=== PATIENT | male | born 1930 | race Caucasian/White ===

== ENCOUNTER 2019-01-02 15:30 | Inpatient (IN) ==
--- NOTE | 2019-01-02 16:12 | Diag Imaging Result Doc PS360 ---
EXAM: CHEST-PORTABLE HISTORY: dyspnea TECHNIQUE: Chest single view COMPARISON: 10/20/2018 FINDINGS: The lungs are well expanded. The heart is not enlarged. There are sternal wires and surgical clips. The vessels are not distended. Mild increased interstitial markings similar to the prior exam. No effusion identified. There is pleural thickening. IMPRESSION: Stable chest Electronically signed by Venu Fu 01/02/2019 4:09 PM
[2019-01-02 16:20] LABS: BASO# 0.04 X1000 (0.0-0.2); BASO% 0.4 % (0.0-0.8); EOS# 0.36 X1000 (0.0-0.7); EOS% 3.5 % (0.0-10.0); HEMATOCRIT 40.9 % (42.0-52.0); IMM GRAN# 0.07 X1000 (0.0-0.04); IMM GRAN% 0.7 % (0.0-0.5); LYMPH# 1.82 X1000 (1.2-3.4); LYMPH% 17.7 % (20.5-51.1); MCH 30.4 PG (27-31); MCHC 34.2 g/dL (33-37); MCV 88.7 FL (81-99); MONO# 0.59 X1000 (0.11-0.59); MONO% 5.7 % (1.7-9.3); MPV 9.4 FL (7.4-10.4); NEUT# 7.41 X1000 (1.4-6.5); PLT 248 X1000 (130-400); RBC 4.61 XMIL (4.7-6.1); RDW 14.4 % (11.5-14.5); WBC 10.29 X1000 (4.8-10.8)
[2019-01-02 16:32] LABS: PTT 30.4 Seconds (22.3-41.8)
[2019-01-02 16:33] LABS: ALB/GLOB RATIO 1.2; ALBUMIN 3.7 g/dL (3.5-5.0); CALCIUM 8.9 mg/dL (8.8-10.2); CREATININE 1.2 mg/dL (0.7-1.2); POTASSIUM 4.7 mmol/L (3.5-5.1); TOTAL BILIRUBIN 0.33 mg/dL (0.20-1.00); TOTAL PROTEIN 6.7 g/dL (6.3-8.3)
--- NOTE | 2019-01-02 17:12 | EKG Report ---
Test Performed on : 01/02/2019 3:41:36 PM Test Reason : ED. NO EKG ORDER FOR MUSE Blood Pressure : / mmHG Vent. Rate : 054 BPM Atrial Rate : 054 BPM P-R Int : 140 ms QRS Dur : 126 ms QT Int : 516 ms P-R-T Axes : -06 -15 031 degrees QTc Int : 489 ms Sinus bradycardia. Right bundle branch block Abnormal ECG When compared with ECG of 20-OCT-2018 20:53, Vent. rate has decreased BY [address] no longer depressed in Anterior leads Unconfirmed Result
[2019-01-02 17:59] LABS: URINE SOURCE CATH
[2019-01-02 18:05] LABS: BILIRUBIN URINE NEGATIVE (NEGATIVE); BLOOD URINE NEGATIVE (NEGATIVE); COLOR YELLOW; GLUCOSE URINE NEGATIVE (NEGATIVE); KETONE URINE NEGATIVE (NEGATIVE); LEUKOCYTES URINE NEGATIVE (NEGATIVE); NITRITE URINE NEGATIVE (NEGATIVE); PH URINE 5.5; PROTEIN URINE 200 mg/dL (NEGATIVE); SP GRAVITY URINE 1.024; TURBIDITY URINE CLEAR (CLEAR); UROBILINOGEN URINE NORMAL (NORMAL)
[2019-01-02 18:08] LABS: UR EPITHELIAL CELLS <10 /HPF (<10); URINE BACTERIA NEGATIVE /HPF; URINE RBC <10 /HPF (<10); URINE WBC <10 /HPF (<10)
--- NOTE | 2019-01-02 19:01 | PROVIDER DOCUMENTATION ---
This chart was entered by Rebecca Red Scribe, acting as scribe for Sergo Leos MD. HPI-Chest Pain - General Stated Complaint: CHEST PAIN/SOB Time Seen by Provider: 01/02/19 15:39 Source: patient Allergies/Adverse Reactions: Patient Allergies Allergy/AdvReac Type Severity Reaction Status Date / Time No Known Allergies Allergy Verified 09/16/17 09:55 Home Medications: Home Medication List Medication Instructions Recorded Confirmed Last Taken Type Aspirin 81 mg PO DAILY 05/09/12 10/20/18 09/15/17 History Donepezil HCl 10 mg PO DAILY 09/16/17 10/20/18 09/15/17 08:00 History Famotidine [Pepcid] 20 mg PO DAILY 09/16/17 10/20/18 09/16/17 05:00 History Fluticasone/Salmet 500/50 INH 1 puff INH BID 09/16/17 10/20/18 09/08/17 History [Advair 500/50 Diskus] Gabapentin 100 mg PO QHS 09/16/17 10/20/18 09/15/17 20:00 History Insulin Glargine [Lantus Insulin] 20 units SQ DAILY 09/16/17 10/20/18 09/16/17 05:00 History Levothyroxine [Synthroid] 100 microgm PO DAILY 09/16/17 10/20/18 09/16/17 05:00 History Metoprolol Tartrate 50 mg PO DAILY 09/16/17 10/20/18 09/15/17 08:00 History Ropinirole [Requip] 0.25 mg PO HS 09/16/17 10/20/18 09/15/17 20:00 History Simvastatin [Zocor] 20 mg PO QHS 09/16/17 10/20/18 09/15/17 20:00 History Iron Carbonyl/Ascorbic Acid 1 each PO DAILY tablet 09/19/17 10/20/18 Unknown Rx [Icar-C] Gabapentin 300 mg PO QHS 10/20/18 10/20/18 Unknown History LISINOpril [Prinivil] 5 mg PO DAILY 10/20/18 10/20/18 Unknown History Magnesium Hydroxide [Milk of 30 ml PO ORDERED 10/20/18 10/20/18 Unknown History Magnesia] Multivitamin,Therapeutic [Thera] 1 tab PO DAILY 10/20/18 10/20/18 Unknown History Ranitidine [Zantac] 150 mg PO 10/20/18 Unknown History Sertraline HCl 75 mg PO QHS 10/20/18 10/20/18 Unknown History Albuterol 2.5MG/Ipratrop 0.5MG 3 ml INH Q4-6H PRN PRN #30 neb 10/21/18 Unknown Rx [Duoneb (A & A)] Levofloxacin 500 mg PO DAILY #6 tab 10/21/18 Unknown Rx - History of Present Illness-CP Nature of Presenting Problem: Patient is a 88 year old male who presents to the ED via EMS after having chest pain and shortness of breath. Patient denies having symptoms currently. Patient's RN states EMS stated patient started having chest pain, diaphoresis, a heart rate in the 30's and became pale shortly after lunch today. EMS reports patient received 1 nitro and 325 mg of aspirin then chest pain resolved. EMS states patient went to bed and symptoms started again. Patient received 2 more nitro and 4 mg of zofran prior to arrival. Location: reports: central Chest Pain Radiation: reports: no radiation Quality of Pain: reports: aching Severity in ED: mild Onset/Duration: this afternoon Timing: gone now Associated Symptoms: reports: diaphoresis, shortness of breath Nitro Today/Relief: 0.4 mg x 3, complete relief Aspirin Treatment Today: 325 mg x 1 Similar Symptoms Previously?: No Recently Seen Here or By Another Healthcare Provider: Yes Review of Systems - Adult - REVIEW OF SYSTEMS - ADULT Constitutional: reports: no symptoms reported. denies: chills, fever, fatique Eyes: reports: no symptoms reported Ears, Nose, Mouth & Throat: reports: no symptoms reported Cardiovascular: reports: no symptoms reported. denies: chest pain, irregular heart rate, palpitations Respiratory: reports: no symptoms reported. denies: cough, shortness of breath, wheezing Gastrointestinal: reports: no symptoms reported Genitourinary: reports: no symptoms reported Musculoskeletal: reports: no symptoms reported Integumentary: reports: no symptoms reported Neurological: reports: no symptoms reported Psychiatric: reports: no symptoms reported Endocrine: reports: no symptoms reported Hematologic/Lymphatic: reports: no symptoms reported Allergic/Immunologic: reports: no symptoms reported All Other Systems: Reviewed and Negative Past History - Adult - PAST MEDICAL HISTORY-ADULT Review of Records: reports: Old Records Reviewed, Nursing Assessment Review, Medications Reviewed, Social history reviewed & non-contributory. Major Childhood Illnesses: reports: denies history Cardiovascular: reports: HTN Respiratory: reports: asthma, COPD Gastrointestinal: reports: GERD Obstetrical/Gynecological: reports: denies history Genitourinary: reports: kidney disease Musculoskeletal: reports: denies history Neurological: reports: CVA, dementia, TIA Psychiatric: reports: depression Endocrine/Immune: reports: Diabetes, thyroid disorder Other Conditions: reports: denies history - PRIOR SURGERIES/PROCEDURES Surgical/Procedure History: reports: reviewed, not pertinent - IMMUNIZATION STATUS Childhood Immunizations: See Nurse Assessment Flu Vaccine: See Nurse Assessment - FAMILY HISTORY Family History: reviewed, not pertinent - SOCIAL HISTORY Smoking: cigarettes (former) Substance Use: denies Living Situation: care facility (SNF) Physical Exam-General - PHYSICAL EXAM-ADULT Initial Vital Signs Reviewed: Yes - CONSTITUTIONAL General Appearance: alert, no apparent distress. negative: lethargic, slow to respond - RESPIRATORY Respiratory: chest non-tender, lungs clear, respiratory distress (mild). nega tive: crackles, stridor, wheezing - CARDIOVASCULAR Cardiovascular: normal peripheral pulses, regular rate, rhythm. negative: tachycardia, systolic murmur - GASTROINTESTINAL (ABDOMEN) Abdominal Exam: normal bowel sounds, non tender, soft. negative: guarding, rebound - MUSCULOSKELETAL Extremity: non-tender, normal inspection. negative: deformity, erythema - SKIN Integumentary: normal color, normal turgor, warm/dry. negative: cyanosis, ecchymosis, erythema, jaundice - NEUROLOGIC Neurologic: grossly normal. negative: aphasia, facial droop - PSYCHIATRIC Psych/Mental Status: normal mood/affect, oriented x 3. negative: anxious Progress - PLAN OF CARE/RESULTS Progress/Plan/Lab Results: Vital Signs - 8 hr 01/02/19 16:11 Temperature 97.9 F Pulse Rate 55 L Respiratory Rate 18 Blood Pressure 127/61 O2 Sat by Pulse Oximetry 93 L Laboratory Results - last 24 hr 01/02/19 01/02/19 01/02/19 15:44 15:44 15:44 WBC 10.29 RBC 4.61 L Hgb 14.0 Hct 40.9 L MCV 88.7 MCH 30.4 MCHC 34.2 RDW Std Deviation 14.4 Plt Count 248 MPV 9.4 Immature Gran % (Auto) 0.7 H Neut % (Auto) 72.0 Lymph % (Auto) 17.7 L [place] % (Auto) 5.7 Eos % (Auto) 3.5 Baso % (Auto) 0.4 Immature Gran # (Auto) 0.07 H Neut # (Auto) 7.41 H Lymph # (Auto) 1.82 [place] # (Auto) 0.59 Eos # (Auto) 0.36 Baso # (Auto) 0.04 PT INR PTT (Actin FS) Sodium 139 Potassium 4.7 Chloride 99 Carbon Dioxide 30 Anion Gap 10 BUN 27 H Creatinine 1.2 Estimated GFR/1.73 m2 57 BUN/Creatinine Ratio 23 Glucose 179 H Calculated Osmolality 287 Calcium 8.9 Total Bilirubin 0.33 AST 20 ALT 18 Alkaline Phosphatase 93 Troponin T Cop-R-Uwlhgqzcjjk Pept 667 H Total Protein 6.7 Albumin 3.7 Globulin 3.0 Albumin/Globulin Ratio 1.2 Urine Source Urine Color Urine Turbidity Urine pH Ur Specific [place] Urine Protein Ur Glucose (Stick) Ur Ketones (Stick) Urine Blood Urine Nitrite Urine Bilirubin Urobilinogen Dipstick Urine Leukocytes Urine WBC (Auto) Urine RBC (Auto) U Epithel Cells (Auto) Urine Bacteria (Auto) 01/02/19 01/02/19 01/02/19 15:44 15:44 17:18 WBC RBC Hgb Hct MCV MCH MCHC RDW Std Deviation Plt Count MPV Immature Gran % (Auto) Neut % (Auto) Lymph % (Auto) [place] % (Auto) Eos % (Auto) Baso % (Auto) Immature Gran # (Auto) Neut # (Auto) Lymph # (Auto) [place] # (Auto) Eos # (Auto) Baso # (Auto) PT 14.0 INR 1.00 PTT (Actin FS) 30.4 Sodium Potassium Chloride Carbon Dioxide Anion Gap BUN Creatinine Estimated GFR/1.73 m2 BUN/Creatinine Ratio Glucose Calculated Osmolality Calcium Total Bilirubin AST ALT Alkaline Phosphatase Troponin T < 0.010 Pzv-R-Knysajsrhfw Pept Total Protein Albumin Globulin Albumin/Globulin Ratio Urine Source CATH Urine Color YELLOW Urine Turbidity CLEAR Urine pH 5.5 Ur Specific [place] 1.024 Urine Protein 200 A Ur Glucose (Stick) NEGATIVE Ur Ketones (Stick) NEGATIVE Urine Blood NEGATIVE Urine Nitrite NEGATIVE Urine Bilirubin NEGATIVE Urobilinogen Dipstick NORMAL Urine Leukocytes NEGATIVE Urine WBC (Auto) <10 Urine RBC (Auto) <10 U Epithel Cells (Auto) <10 Urine Bacteria (Auto) NEGATIVE Orders Category Date Time Status Resuscitation Status Routine Care 01/02/19 16:42 Ordered CHEST-PORTABLE [RAD] Stat Exams 01/02/19 15:50 Completed CBC WITH ELECTRONIC DIFF [HEME] Stat Lab 01/02/19 15:44 Completed COMPREHENSIVE METABOLIC PANEL [CHEM] Stat Lab 01/02/19 15:44 Completed PRO B-NATRIURETIC PEPTIDE Stat Lab 01/02/19 15:44 Completed PROTIME WITH INR [COAG] Stat Lab 01/02/19 15:44 Completed PTT [COAG] Stat Lab 01/02/19 15:44 Completed TROPONIN T Stat Lab 01/02/19 15:44 Completed URINALYSIS W/POSS RFLX CULT [URINALYSIS] Stat Lab 01/02/19 17:18 Completed EKG [EKG] Stat Ther 01/02/19 15:41 Draft Transfer/Admit Order [TRANSFER] Routine Transfer 01/02/19 18:48 Ordered Result Diagrams: 01/02/19 15:44 01/02/19 15:44 - EKG 1 Time of EKG reading by physician:: 15:41 EKG Read and Signed by:: Sergo Leos EKG Interpretation (*Must complete 3 of following elements*): Abnormal Rate: 54 Rhythm: sinus bradycardia [place]: normal QRS: RBB DE Interval: normal Comments: abnormal ECG - XRAY 1 XRAY Study: Chest Impression: See EMR Report ( EXAM: CHEST-PORTABLE HISTORY: dyspnea TECHNIQUE: Chest single view COMPARISON: 10/20/2018 FINDINGS: The lungs are well expanded. The heart is not enlarged. There are sternal wires and surgical clips. The vessels are not distended. Mild increased interstitial markings sim ilar to the prior exam. No effusion identified. There is pleural thickening. IMPRESSION: Stable chest Electronically signed by Venu Fu 01/02/2019 4:09 PM 01/02/19 [id number] Interpreting Physician: Venu Fu MD Dictated Date/Time: 01/02/19 0959 cc: Sergo Leos MD;) - CONSULTS/PCP/HOSPITALIST Notification #1 *Consult/PCP/Hospitalist*: RENETTA Nicole for Hospitalist Time Discussed: 17:56 Reason/Comments: Dr. Leos consulted with Bonnie about patient Consult Disposition: Will see in ED, Admit Departure - Departure Date of Disposition Decision: 01/02/19 Time of Disposition Decision: 17:57 DIAGNOSIS: Chest pain, Bradycardia Disposition: ADMITTED INPATIENT 09 Certified Medical Emergency: Emergent Condition: Serious Referrals and Follow-Ups: None,PCP [Primary Care Provider] - - Critical Care Note This patient required my direct & personal management of CC.: No Attestation - Physician/ DION Attestation The physician spent face to face time with patient:: Yes Advanced Practice Provider documentation review:: Supervising physician onsite and consulted in the evaluation and care of this patient. The physician did have a face to face encounter with the patient. This chart was documented by the indicated scribe, (Rebecca Red Scribe) and acc urately reflects the services I performed and decisions made by me, Sergo Leos MD, as attested by the provider's signature.
--- NOTE | 2019-01-02 19:40 | HISTORY AND PHYSICAL ---
PRIMARY CARE PROVIDER: None. CHIEF COMPLAINT: Chest pain and syncope. HISTORY OF PRESENT ILLNESS: Mr. Red is an 88-year-old male who carries a past medical history of dementia, type 2 diabetes, coronary artery disease, hypertension, COPD, who resides at [facility]. He presented to the ED after he had a syncopal episode, and when he came to, he started having chest pain that was in the center of his chest, that radiated over to his left shoulder ad down into his biceps. He had associated diaphoresis, and dizziness. This all occurred after lunchtime. He was relieved with nitroglycerin. When EMS arrived on the scene, his heart rate was in the 30s. While assessing him in the ED, his heart rate would drop down into the 40s and he would become dizzy. He was placed on supplemental O2, and we are admitting for chest pain and syncopal episode. As of note, patient is a Do Not Resuscitate level 1 from the alf. We will admit him to [facility] overnight for any more possible syncopal episodes and to watch his heart rhythm closely. PAST MEDICAL HISTORY: 1. Vascular dementia. 2. Coronary artery disease. 3. Type 2 diabetes. 4. Essential hypertension. 5. COPD. 6. Gastroesophageal reflux disease. 7. Benign prostatic hypertrophy. 8. Hyperlipidemia. 9. Neuropathy. 10. CAD. PAST SURGICAL HISTORY: 1. CABG 10 years ago in [place]. 2. Colonoscopy. 3. Polypectomy. SOCIAL HISTORY: He resides at [facility]. No tobacco, alcohol, or illicit drug use. 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 I believe this was in [place]. ALLERGIES: No known drug allergies. HOME MEDICATIONS: Have not been verified. REVIEW OF SYSTEMS: Completed and negative except for those mentioned in HPI. PHYSICAL EXAMINATION: VITAL SIGNS: Temperature is 97.9 degrees, heart rate 55, respirations 18, blood pressure 127/61, O2 is 93% on room air. He is 97% after nasal cannula. GENERAL: Mr. Red is a frail-appearing, 88-year-old male who is sitting up in the hospital bed in no acute distress. HEENT: Atraumatic, normocephalic. PERRL. NECK: Supple. Trachea midline. I did not appreciate any JVD. CV: S1, S2 appreciated. PULMONARY: Bilateral breath sounds decreased in the bases bilaterally. GASTROINTESTINAL: Soft, nontender, nondistended. Positive bowel sounds 4 quadrants. EXTREMITIES: Trace edema. NEUROLOGIC: Patient is alert and oriented x4. He follows commands. He moves all extremities. He does appear to have some footdrop in his bilateral lower extremities. He gets around in a wheelchair at the alf. DIAGNOSTIC DATA: EKG shows sinus bradycardia with a right bundle branch block, and he had a right bundle branch back in October. That was a new finding from his last one in 2018. Chest x-ray is stable chest. LABORATORY DATA: White count 10, hemoglobin and hematocrit 14 and 40, platelet count of 248,000. Sodium 139, potassium 4.7, BUN 27, creatinine 1.2, blood glucose is 179. Troponin less than 0.010. ProBNP was 667. ASSESSMENT AND PLAN: 1. Symptomatic bradycardia with a syncopal episode. We will admit him to [facility] overnight and watch his rhythm closely. We will check an echocardiogram, carotid Dopplers, and hold any medications that could lower his heart rate. 2. Chest pain. We will rule him out for myocardial infarction. First set of cardiac enzymes was negative. We will continue with p.r.n. nitroglycerin. Consult Cardiology. As of note, patient is a Do Not Resuscitate level 1. 3. Chronic obstructive pulmonary disease. No exacerbation. 4. Type [address] him on sliding scale insulin and pattern blood sugars. 5. Essential hypertension, stable. 6. Hyperlipidemia. 7. Vascular dementia. 8. Further recommendations to follow physician evaluation, laboratory and diagnostic data. Patient seen and examined by me face to face, all the laboratory, vitals signs and images were reviewed, patient has multiple comorbidities including dementia, type 2 diabetes, coronary artery disease, hypertension, COPD, who resides at [facility]. He presented to the ED after he had a syncopal episode and chest pain, he was found to be bradycardic, we will hold any medication that can cause bradycardia, will be transfer to [facility], at the moment of my exam he was felling better, Cardiology will be consulted, I agree with the rest of the EYE SURGEON's assessment and plan, Thomas Reyes MD Dictated by RENETTA Schafer for Thomas Steele MD cc: Thomas Steele MD [facility]
[2019-01-02] MEDS ORDERED: TYLENOL PO PRN (20:08)
[2019-01-02] MEDS ORDERED: NITROGLYCERIN SL PRN (20:08)
[2019-01-02] MEDS ORDERED: ZOFRAN IV PRN (20:08)
[2019-01-02] MEDS: HUMALOG SUBQ SCH (21:00)
[2019-01-03] MEDS: HUMALOG SUBQ SCH ×4 (06:20→22:16)
[2019-01-03 06:22] LABS: BASO# 0.04 X1000 (0.0-0.2); BASO% 0.5 % (0.0-0.8); EOS# 0.42 X1000 (0.0-0.7); HEMATOCRIT 38.3 % (42.0-52.0); HEMOGLOBIN 13.2 g/dL (14.0-18.0); IMM GRAN# 0.07 X1000 (0.0-0.04); IMM GRAN% 0.8 % (0.0-0.5); LYMPH# 2.42 X1000 (1.2-3.4); LYMPH% 28.9 % (20.5-51.1); MCH 30.8 PG (27-31); MCHC 34.5 g/dL (33-37); MCV 89.3 FL (81-99); MONO% 7.2 % (1.7-9.3); MPV 9.5 FL (7.4-10.4); NEUT# 4.82 X1000 (1.4-6.5); NEUT% 57.6 % (42.2-75.2); PLT 220 X1000 (130-400); RBC 4.29 XMIL (4.7-6.1); RDW 14.4 % (11.5-14.5); WBC 8.37 X1000 (4.8-10.8)
[2019-01-03 06:48] LABS: AGAP 10; ALB/GLOB RATIO 1.2; ALBUMIN 3.6 g/dL (3.5-5.0); ALKALINE PHOSPHATASE 83 U/L (32-122); BUN 24 mg/dL (8-22); CALCIUM 9.2 mg/dL (8.8-10.2); CHLORIDE 102 mmol/L (98-107); CHOLESTEROL 101 mg/dL (0-200); COSMO 284; CREATININE 1.2 mg/dL (0.7-1.2); ESTIMATED GFR 57; GLUCOSE 82 mg/dL (70-104); GOT 23 U/L (10-34); GPT 17 U/L (10-44); HDL 32 mg/dL (35-55); LDL 40 mg/dL; POTASSIUM 4.6 mmol/L (3.5-5.1); SODIUM 141 mmol/L (136-145); TCO2 29 mmol/L (25-35); TOTAL BILIRUBIN 0.32 mg/dL (0.20-1.00); TOTAL PROTEIN 6.5 g/dL (6.3-8.3); TRIGLYCERIDES 145 mg/dL (39-160); VLDL 29 mg/dL
[2019-01-03 06:49] LABS: FREE T4 1.38 ng/dL (0.93-1.70); TSH 2.76 uIUmL (0.27-4.20)
[2019-01-03] MEDS: PRILOSEC PO SCH (07:22)
--- NOTE | 2019-01-03 07:26 | EKG Report ---
Test Performed on : 01/03/2019 06:39:27 AM Test Reason : bradycardia Blood Pressure : / mmHG Vent. Rate : 054 BPM Atrial Rate : 054 BPM P-R Int : 116 ms QRS Dur : 128 ms QT Int : 508 ms P-R-T Axes : 020 025 070 degrees QTc Int : 481 ms Sinus bradycardia. Right bundle branch block Abnormal ECG When compared with ECG of 02-JAN-2019 15:41, (Unconfirmed) No significant change was found Confirmed by Denise FRANKLIN, Beny Arias ([id number]) on 01/03/2019 5:09:37 PM
--- NOTE | 2019-01-03 07:50 | Diag Imaging Result Doc PS360 ---
EXAM: CHEST-PORTABLE INDICATION: Chest Pain TECHNIQUE: One view COMPARISON: 01/02/2019 FINDINGS: Increased interstitial markings bilaterally are unchanged. No new consolidation is identified. Cardiac silhouette is stable. IMPRESSION: Stable chest. Electronically signed by Charlie Espana 01/03/2019 7:47 AM
--- NOTE | 2019-01-03 08:02 | PROGRESS NOTE ---
DATE: 01/03/2019 SUBJECTIVE: This patient is resting comfortably in bed. His heart rate has been mostly in the 50s and high 40s. He seems to be resting comfortably. He is DNR level 1. Cardiology has been consulted. OBJECTIVE: Vital Signs: Temperature 98.1 degrees, pulse 51, respiratory rate 18, blood pressure 151/61, oxygen saturation 99 on 2 L of nasal cannula. HEENT: Head normocephalic, no trauma. PERRLA. Neck: Supple. No JVD. No masses. Central trachea. Chest: Clear to auscultation. No wheezing. Some crepitus at the bases. Cardiovascular: RRR. Bradycardic. Abdomen: Soft, nontender, nondistended. No hepatosplenomegaly. Extremities: Trace edema. No clubbing, no cyanosis. Neurological examination: This patient is alert, he is oriented. He is following commands. He moves all 4 extremities, and it looks like he moves around in a wheelchair at the senior care. LABORATORY: WBC 8.3, hemoglobin 13.2, hematocrit 38.3, platelets 220. Sodium 141, potassium 4.6, chloride 102, bicarbonate 29. BUN 24, creatinine 1.2, glucose 82, calcium 9.2. Magnesium yesterday 2. Troponins negative x3. TSH 2.76. ASSESSMENT AND PLAN: 1. Symptomatic bradycardia with syncopal episode. The patient seems to be stable. He is sleepy, but arousable and talking. His heart rate has been mostly in the 50s. We will check his home medications. It looks like he has been on beta blockers, which has been stopped. Will continue with the same management for now. 2. Chest pain with negative troponins. He is not complaining of chest pain at this moment. 3. Chronic obstructive pulmonary disease not in exacerbation. 4. Type 2 diabetes. Continue with same management. 5. Hypothyroidism. Continue with levothyroxine. 6. Essential hypertension, stable. 7. Hyperlipidemia. We will continue with statins. 8. Vascular dementia. We will put this patient back on his medications. cc: Thomas Steele MD
[2019-01-03] MEDS: ICAR-C PO SCH (09:56)
[2019-01-03] MEDS: SYNTHROID PO SCH (09:57)
[2019-01-03] MEDS: ASPIRIN PO SCH (09:57)
[2019-01-03] MEDS: THERA M PLUS PO SCH (09:57)
[2019-01-03] MEDS: ARICEPT PO SCH (09:57)
[2019-01-03] MEDS: ZANTAC PO SCH (09:58)
--- NOTE | 2019-01-03 12:24 | CONSULTATION ---
DATE OF CONSULTATION: 01/03/2019 IMPRESSION: 1. Apparent syncopal spell while emptying bladder at detention. Bradycardia reported. 2. Significant dementia. 3. Nonambulatory. 4. Atherosclerotic coronary disease with previous coronary artery bypass grafting. Patient continues without angina. 5. Type 2 diabetes mellitus. 6. Hypertension. 7. Hyperlipidemia. RECOMMENDATIONS: 1. Taper off metoprolol as you are doing. 2. Pacemaker does not appear to be beneficial for this patient. 3. Conservative cardiovascular management overall. It is reasonable for patient to transfer back to [facility] facility in the next 24 hours. HISTORY: This 88-year-old, white male with a past history of dementia, previous coronary artery bypass surgery, type 2 diabetes mellitus, hypertension, prostate hypertrophy, hyperlipidemia, and COPD was transferred from the detention after a syncopal episode. He cannot remember much of what happened. It is reported that he was emptying his bladder in a bedside commode and was found passed out. Bradycardia was noted. He was transferred to the hospital for further evaluation. He was noted to have sinus bradycardia around 50. He has been on metoprolol and this has been held. He cannot recall any chest pain or palpitations. He is not ambulatory due to bilateral lower extremity weakness. He has a living will and is a "Do Not Resuscitate". PAST MEDICAL HISTORY: 1. Atherosclerotic coronary disease with history of previous coronary artery bypass grafting. 2. Dementia. 3. Nonambulatory. 4. Type 2 diabetes mellitus. 5. Hypertension. 6. Chronic obstructive pulmonary disease. 7. Gastroesophageal reflux disease. 8. Prostate hypertrophy. 9. Hyperlipidemia. 10. Peripheral neuropathy. 11. History of transient ischemic attacks and cerebrovascular disease. PAST SURGICAL HISTORY: Includes coronary artery bypass surgery and polypectomy via colonoscopy. ALLERGIES: He has no known drug allergies. MEDICATIONS PRIOR TO ADMISSION: As listed. SOCIAL HISTORY: He is and resides at a [facility] facility. He does not smoke or use alcohol. FAMILY HISTORY: Negative for premature coronary artery disease. REVIEW OF SYSTEMS: Pulmonary: Negative. Gastrointestinal: Negative. Constitutional: Negative beyond history of present illness. Remainder of review of systems negative/noncontributory beyond history of present illness with 14 total systems reviewed. PHYSICAL EXAMINATION: General: This is an overweight, elderly, white male in no distress. Vital Signs: Blood pressure 173/77, heart rate 55, with ECG monitor showing sinus bradycardia, weight 177 pounds. HEENT Examination: Extraocular muscles appear intact. Mucous membranes moist. Neck: Supple without jugular venous distention. There are no carotid bruits. Chest: Clear to auscultation. Cardiac Examination: Reveals a regular bradycardia without appreciable murmur, rub, or gallop. Abdomen: Soft. Bowel sounds are normal. Extremities: Without edema. Neurologic: Examination reveals him to be awake and responsive. His memory is poor and he is not oriented to time. Speech is fluent. He moves all 4 extremities equally well. PERTINENT DATA: Twelve-lead EKG demonstrates sinus bradycardia. LABORATORY DATA: Includes a sodium of 141, potassium 4.6, chloride 102. Carbon dioxide 29, BUN 24, creatinine 1.2, glucose 82, magnesium 2.0. Troponin T less than 0.01, Followup troponin T 0.018. TSH 2.76, free T4 of 1.38. White blood cell count 8.37, hematocrit 38.3, hemoglobin 13.2, platelet count 220,000. cc: Peterson Reynolds MD
[2019-01-03] MEDS ORDERED: APRESOLINE IV PRN (17:39)
[2019-01-03 17:43] LABS: URINE SOURCE CATH
[2019-01-03 17:47] LABS: UR EPITHELIAL CELLS >10 /HPF (<10); URINE BACTERIA NEGATIVE /HPF; URINE RBC TNTC /HPF (<10)
[2019-01-03 18:07] LABS: BILIRUBIN URINE NEGATIVE (NEGATIVE); BLOOD URINE LARGE (NEGATIVE); COLOR ORANGE; GLUCOSE URINE NEGATIVE (NEGATIVE); KETONE URINE NEGATIVE (NEGATIVE); LEUKOCYTES URINE NEGATIVE (NEGATIVE); NITRITE URINE NEGATIVE (NEGATIVE); PROTEIN URINE 100 mg/dL (NEGATIVE); SP GRAVITY URINE 1.017; TURBIDITY URINE TURBID (CLEAR); UROBILINOGEN URINE NORMAL (NORMAL)
--- NOTE | 2019-01-03 18:24 | ECHO REPORT ---
ORDER DATE: 01/02/2019 INDICATION: An 88-year-old male with chest pain, bradycardia, and syncope. M-MODE MEASUREMENTS: Left ventricle end diastole: 4.6. Left ventricle end systole: 2.3. Posterior wall: 1.3. Interventricular septum: 1.3. Left atrium: 3.8. Aortic diameter: 3.4. SUMMARY OF 2-DIMENSIONAL IMAGIN. Left ventricular function is normal. Ejection fraction is probably in the order of 65%. There is no wall motion abnormality. Mild degree of concentric LVH is noted. 2. There is sclerosis of the aortic valve without stenosis. Maximum gradient across the valve is less than 10 mmHg. 3. Pulmonic valve looks grossly normal. Color flow mapping unremarkable. 4. The mitral annulus shows mild calcification. 5. Pulsed wave Doppler of mitral inflow shows "normal" E/A ratio. 6. Tissue Doppler of septal and lateral mitral annulus averages 5 cm. 7. There is impaired left ventricular relaxation. There is mild degree of regurgitation. 8. Pulsed wave Doppler of pulmonary venous flow is normal. 9. The tricuspid valve is unremarkable. 10.Pulmonary pressure could not be calculated in this case. 11.The jet of tricuspid regurgitation is minimal. 12.Pulmonic valve is unremarkable. 13.Optison was injected at the end of the test to optimize visualization of the endocardium. 14.There is no pericardial effusion, mass, and no thrombus. 15.The right-sided chambers appear to be unremarkable. 16.Left atrium is probably normal. Clinical correlation is recommended. cc: Alexander No MD
[2019-01-03] MEDS: ADVAIR 500/50 DISKUS INH SCH (19:30)
[2019-01-03] MEDS ORDERED: REQUIP PO SCH (21:00)
[2019-01-03] MEDS ORDERED: NEURONTIN PO SCH (21:00)
[2019-01-03] MEDS ORDERED: ZOCOR PO SCH (21:00)
[2019-01-03] MEDS ORDERED: ZOLOFT PO SCH (21:00)
[2019-01-03] MEDS: APRESOLINE PO SCH (22:19)
[2019-01-04] MEDS: PRILOSEC PO SCH ×2 (05:16→06:21)
[2019-01-04] MEDS: APRESOLINE PO SCH ×2 (05:16→13:09)
[2019-01-04 06:28] LABS: BASO# 0.01 X1000 (0.0-0.2); BASO% 0.1 % (0.0-0.8); EOS# 0.02 X1000 (0.0-0.7); EOS% 0.1 % (0.0-10.0); HEMATOCRIT 39.5 % (42.0-52.0); HEMOGLOBIN 13.4 g/dL (14.0-18.0); IMM GRAN# 0.06 X1000 (0.0-0.04); IMM GRAN% 0.4 % (0.0-0.5); LYMPH# 0.96 X1000 (1.2-3.4); LYMPH% 7.2 % (20.5-51.1); MCH 30.3 PG (27-31); MCHC 33.9 g/dL (33-37); MCV 89.4 FL (81-99); MONO# 0.54 X1000 (0.11-0.59); NEUT# 11.81 X1000 (1.4-6.5); NEUT% 88.2 % (42.2-75.2); PLT 219 X1000 (130-400); RBC 4.42 XMIL (4.7-6.1); RDW 14.3 % (11.5-14.5)
[2019-01-04 06:43] LABS: CALCIUM 9.2 mg/dL (8.8-10.2); CREATININE 1.4 mg/dL (0.7-1.2); MAGNESIUM 1.8 mg/dL (1.5-2.7); PHOSPHORUS 3.9 mg/dL (2.7-4.5); POTASSIUM 4.6 mmol/L (3.5-5.1)
[2019-01-04] MEDS: HUMALOG SUBQ SCH ×2 (06:55→11:36)
[2019-01-04 07:48] LABS: BANDS 1 % (0-1); LYMPHS 6 % (21-51); MONO 2 % (1-9); SEGS 91 % (42-75)
[2019-01-04] MEDS: ADVAIR 500/50 DISKUS INH SCH (08:17)
[2019-01-04] MEDS ORDERED: MILK OF MAGNESIA PO SCH (09:00)
[2019-01-04] MEDS: ZANTAC PO SCH (09:47)
[2019-01-04] MEDS: ICAR-C PO SCH (09:47)
[2019-01-04] MEDS: THERA M PLUS PO SCH (09:47)
[2019-01-04] MEDS: ASPIRIN PO SCH (09:47)
[2019-01-04] MEDS: ARICEPT PO SCH (09:47)
[2019-01-04] MEDS: SYNTHROID PO SCH (09:47)
--- NOTE | 2019-01-04 10:36 | DISCHARGE SUMMARY ---
ADMISSION DATE: 01/02/2019 DISCHARGE DATE: 01/04/2019 DISCHARGE DIAGNOSES: 1. Symptomatic bradycardia with syncopal episode, resolved. 2. Chest pain with negative troponins. 3. Chronic obstructive pulmonary disease, not in exacerbation. 4. Type 2 diabetes. 5. Hypothyroidism. 6. Hypertension. 7. Hyperlipidemia. 8. Vascular dementia. PROCEDURES PERFORMED: 1. Echocardiogram dated 01/02/2019. Impression: Ejection fraction around 65%. Mild degree of concentric LVH is noted. Pulmonary pressure could not be calculated at this time. A jet of tricuspid regurgitation is minimal. The right-sided chambers appear to be unremarkable. 2. Chest x-ray dated 01/02/2019. Impression: Stable chest. 3. Chest x-ray dated 01/03/2019. Impression: Stable chest. HOSPITAL COURSE: An 88-year-old male with a past medical history of dementia, type 2 diabetes, coronary artery disease, hypertension, COPD, who resides at [facility], presented to the emergency department after having a syncopal episode, and also he stated that he is having some chest discomfort, radiated to his left shoulder down to his biceps. He had associated diaphoresis and dizziness. This all occurred at lunchtime and he was admitted on 01/02/2019. The pain was relieved with nitroglycerin. When EMS arrived on the scene, his heart rate was in the 30s. While assessing this patient in the emergency department, his heart rate was mostly in the 50s but sometimes was dropping down to the high 40s, and he would become dizzy. He was placed on supplemental oxygen. We did stop the metoprolol that he was taking at home Cardiology Department was consulted and he was admitted to the intensive care unit. We noticed that his heart rate has been mostly in the 50s, but then since we are not continuing with his beta blockers, the heart rate increases to the 60s, 70s and 80s, he is not having more dizziness. He is not having any syncopal episode. He feels better. His blood pressure increased and he was placed on hydralazine and the blood pressure has been better with this new medication, the last one at 7:26 a.m. is 121/54. I believe this patient is ready to go back to the [facility]. Cardiology Department will try to treat this patient conservatively. OBJECTIVE: Vital Signs: Temperature 98.2 degrees, pulse 84, respiratory rate 20, blood pressure 121/54, oxygen saturation 99 on 2 L of nasal cannula. HEENT: Head normocephalic. No trauma. PERRLA. Neck: Supple. No JVD. No masses. Central trachea. Chest: Clear to auscultation. No wheezing. No rales. Cardiovascular: Regular rate and rhythm. Abdomen: Soft, nontender, nondistended. No hepatosplenomegaly. Extremities: No edema, no clubbing, no cyanosis. Neurological: The patient is alert. He is oriented x2. He knows his name and he knows he is in the hospital, he is able to say the name of this hospital as well, he is not oriented to time, and about situation, he knows that he blacked out and came to the hospital. He is able to move all 4 extremities but he has generalized weakness. LABORATORY DATA: WBC 13, hemoglobin 13.4, hematocrit 39.5, platelets 219,000. Sodium 137, potassium 4.6, chloride 99, bicarbonate 28, BUN 29, creatinine 1.4, glucose 194, calcium 9.2, magnesium 1.8. DISCHARGE MEDICATIONS: 1. Acetaminophen 650 mg p.o. q.6 hours p.r.n. fever or pain. 2. Aspirin 81 mg p.o. daily. 3. Donepezil 10 mg p.o. daily. 4. Advair 500/50 Diskus 1 puff inhaler twice a day. 5. Gabapentin 300 mg p.o. at bedtime and 100 mg p.o. q.a.m. 6. Hydralazine 25 mg p.o. q.8 hours. 7. Lantus 15 units subcutaneously daily. 8. Icar C1 tablet p.o. daily. 9. Levothyroxine 100 mg p.o. daily. 10. Milk of magnesia 30 mL p.o. as needed for constipation. 11. Multivitamin 1 tablet p.o. daily. 12. Ranitidine 150 mg p.o. q.a.m. 13. Ropinirole 0.25 mg p.o. at bedtime. 14. Sertraline 75 mg p.o. at bedtime. 15. Simvastatin 20 mg p.o. at bedtime. DISCHARGE DISPOSITION: The patient will be discharged back to [facility]. He seems to be stable. No more episodes of syncope or dizziness. His heart rate is better now after stopping metoprolol, for his blood pressure, we added hydralazine. TIME SPENT: Time discharging this patient, 35 minutes. cc: Thomas Steele MD
[2019-01-04 12:20] VITALS: BP 147/63
--- NOTE | 2019-01-07 14:31 | Carotid Study ---
DATE: 01/02/2019 PROCEDURE: Carotid duplex imaging. REFERRING PHYSICIAN: Bobby INTERPRETING PHYSICIAN: Dr. Shay TECH: Josephine INDICATIONS: The patient has syncope. OBSERVED DATA RIGHT LEFT Brachial Blood Pressure Carotid Pulse Bruits: Carotid/Sub DIAGRAM OF ULTRASOUND IMAGING R L RIGHT INT EXT INT EXT LEFT Demetrius (cm/s) Demetrius (cm/s) Subclavian 102/0 Subclavian 106/0 CCA Proximal 76/5 CCA Proximal 64/0 CCA Distal 60/9 CCA Distal 80/4 Bulb 72/7 Bulb 72/0 ICA Proximal 219/45 ICA Proximal 91/12 ICA Mid 175/21 ICA Mid 52/11 ICA Distal 162/23 ICA Distal 52/12 ECA 154/15 ECA 64/0 Vertebral 39/13 A Vertebral 28/7 A ICA/CCA Ratio 2.9 ICA/CCA Ratio 1.1 % Stenosis 60 to 79 % Stenosis 0 to 39 FINDINGS: Irregular calcific plaque in both bulbs. PHYSICIAN INTERPRETATION: Irregular calcific plaque in both bulbs. It does produce a stenosis of hemodynamic consequence on the right but not on the left. There is antegrade vertebral flow bilaterally. cc: Tay Shay MD
== END 2019-01-04 13:37 | DRG 310 ==
LOC: ED 15:30 → EDIPHOLD 21:59 → ICU 22:56 → 4N 01-03 18:27
PROVIDERS: ATTEND Internal Medicine
CPT/HCPCS: 71010; 71045; 80048; 80053; 80061; 81001; 82550; 82948; 83735; 83880; 84100; 84439; 84443; 84484; 85025; 85610; 85730; 87088; 93005; 93010; 93306; 93880; 94640; 94761; 99285; A9270; C8929; J0360; J1815; Q9957; XXXXX